=== PATIENT | female | born 1935 | race Caucasian/White ===

== ENCOUNTER 2016-07-22 09:11 | Emergency (ER) | payer MEDICARE ==
[~2016-07-22] VITALS: Ht 167.6 cm; Wt 59.0 kg
[2016-07-22] MEDS ORDERED: NO HOME MEDS (09:30)
[2016-07-22] MEDS ORDERED: IPRATROPIUM 0.5MG/ALBUTEROL 2.5MG INH SOL UD 3ML (DUONEB)(J7620) NEB ONE (10:00)
[2016-07-22] MEDS ORDERED: ALBU17IN INH (11:06)
[2016-07-22] MEDS ORDERED: LEVA500T PO (11:06)
[2016-07-22 11:09] VITALS: BP 113/53
--- NOTE | 2016-07-22 11:14 | REP ---
CHEST, TWO VIEWS: Two views of the chest are performed. I have no prior study for comparison. There is no acute infiltrate. Heart is ham in size. There is some calcification over the thoracic aorta. Mediastinal silhouette is otherwise unremarkable. There are degenerative changes of the spine. IMPRESSION: No acute infiltrate. Signed by Yeison Jauregui MD 07/22/2016 01:57 P
== END 2016-07-22 11:24 | disposition home or self-care (01) ==
LOC: M ED 10:17
DX: J44.0 Chronic obstructive pulmonary disease with (acute) lower respiratory infection (principal); Z87.09 Personal history of other diseases of the respiratory system; Z79.899 Other long term (current) drug therapy; Z88.0 Allergy status to penicillin; Z88.5 Allergy status to narcotic agent; Z88.6 Allergy status to analgesic agent; Z88.8 Allergy status to other drugs, medicaments and biological substances; Z91.040 Latex allergy status